=== PATIENT | male | born 1955 | race American Indian/Alaskan Native ===

== ENCOUNTER 2017-12-14 18:43 | Emergency (ER) | payer MEDICAID ==
[2017-12-14 18:44] VITALS: BMI 29.0
[2017-12-14] MEDS ORDERED: Alum-Mag Hydrox-Simethicone Susp (30 mL) PO STA (20:28)
[2017-12-14] MEDS ORDERED: Alum-Mag Hydrox-Simethicone Susp (30 mL) ONE (20:35)
--- NOTE | 2017-12-14 20:35 | C.PDOC ---
History Of Present Illness 62yo male, history of GERD (worse in the morning), presents to the ED for evaluation of left chest discomfort, described as waxing and waning for the past 3 days. Patient states the pain is non-exertional and he has not had any changes in his exercise tolerance. He also denies any known cardiac history. Patient denies any fever, chills, shortness of breath. No other complaints. Time Seen by Provider: 12/14/17 20:20 Chief Complaint (Nursing): Chest Pain History Per: Patient History/Exam Limitations: no limitations Onset/Duration Of Symptoms: Days (3) Current Symptoms Are (Timing): Still Present Quality: "Pain" Past Medical History Reviewed: Historical Data, Nursing Documentation, Vital Signs Vital Signs: Last Vital Signs Temp Pulse 66 12/14/17 21:06 Resp 12 12/14/17 21:06 BP 135/94 H 12/14/17 21:06 Pulse Ox 99 12/14/17 21:17 - Medical History PMH: GERD, HTN Surgical History: No Surg Hx Family History: States: No Known Family Hx - Social History Hx Tobacco Use: Yes Hx Alcohol Use: No Hx Substance Use: No - Immunization History Hx Tetanus Toxoid Vaccination: Yes Hx Influenza Vaccination: Yes Hx Pneumococcal Vaccination: Yes Review Of Systems Except As Marked, All Systems Reviewed And Found Negative. Constitutional: Negative for: Fever, Chills Cardiovascular: Positive for: Chest Pain Respiratory: Negative for: Shortness of Breath Physical Exam - Physical Exam Appears: No Acute Distress Skin: Normal Color, Warm, Dry Head: Atraumatic, Normacephalic Eye(s): bilateral: Other (pinpoint ) Oral Mucosa: Other (no alcohol on breath noted) Neck: Normal ROM, Supple Chest: Symmetrical, No Tenderness Cardiovascular: Rhythm Regular Respiratory: Normal Breath Sounds, No Wheezing Gastrointestinal/Abdominal: Normal Exam, Soft, No Tenderness Back: Normal Inspection Extremity: Normal ROM Neurological/Psych: Other (stuperous, repetitive) ED Course And Treatment - Laboratory Results Result Diagrams: 12/14/17 20:33 12/14/17 20:33 Lab Interpretation: Abnormal (tox + opiates/methadone, etoh neg.) ECG: Interpreted By Me ECG Rhythm: Sinus Rhythm ECG Interpretation: Normal Rate From EC O2 Sat by Pulse Oximetry: 99 Pulse Ox Interpretation: Normal - Radiology CXR: Interpreted by Me CXR Interpretation: Yes: No Acute Disease Progress Note: maalox, protonix Reevaluation Time: 21:16 Reassessment Condition: Improved Medical Decision Making Medical Decision Making: Impression: Chest pain (?) Plan: -- Patient accompanied by of 30+ years who states patient has not used any narcotics -- Labs -- CXR -- EKG -- Protonix 40 mg IVP -- Maalox 30 ml PO s/s c/w GERD, normal cardiac w/u and no hiatal hernia nor elev d-dimer initially denied narcotics use, tox + opiates/methadone which supports pt's pinpoint pupils and apparently narcotic use behavior. Declines detox at this time. at discharge pt claims he is in a Methadone program in [facility] [address] when asked if he has his urine toxicology done and it is positive for narcotics what happens? "They give me more methadone" Will consider discussion findings w pt's Methadone program. pt was homeless and recently took him back in but he claims he does not have sexual relations with her. pt specifically asked to NOT discuss his medical issues in front of his , though she was present at initial eval As he "claims" to not have sexual relations with her it seems we are NOT obligated to tell her. pt claims to be HIV negative He takes anti-HIV meds approx 1x/week when he has sex with an HIV+ woman. His is unaware of his extramarital sex with HIV+ woman. Denies receptive homosexual anal sex no stigmata of AIDS Instructed to have HIV testing performed as opt. Disposition Doctor Will See Patient In The: Office Counseled Patient/Family Regarding: Studies Performed, Diagnosis - Disposition Referrals: Alcoholics Anonymous [Outside] [facility] [Outside] [facility] [Outside] [facility] [Outside] [facility] [Outside] Disposition: HOME/ ROUTINE Disposition Time: 21:17 Condition: GOOD Additional Instructions: GERD: take pepcid 20 mg 9AM and 9PM for suspected GERD/Gastritis Maalox 30 cc's (one tablespoon) 4-5x/day as needed for symptomatic chest/reflux discomforts follow-up in our outpatient [facility] to consider referral for Gastroenterology as needed. Opiate abuse Seek outpatient counseling for your narcotics and methadone abuse Seek outpatient resources as listed below. Keep Narcan in your pocket and give one to your friends/family to administer to you in case of overdose- it reverses the respiratory suppression of opiate overdose and can save your life. HIV: continue your outpatient meds as normal safe sex practices have your viral load and CD4 count checked per routine. Prescriptions: Naloxone HCl [Narcan] 4 mg NS ONCE PRN #1 spray PRN Reason: narcotics use Instructions: Acid Reflux (Gastroesophageal Reflux Disease), Adult (DC) Forms: [facility] (Sudanese) - Clinical Impression Clinical Impression: Chest discomfort, Narcotic abuse, HIV exposure - Scribe Statement The provider has reviewed the documentation as recorded by the Scribe (Myla Pérez) Provider Attestation: All medical record entries made by the Scribe were at my direction and personally dictated by me. I have reviewed the chart and agree that the record accurately reflects my personal performance of the history, physical exam, medical decision making, and the department course for this patient. I have also personally directed, reviewed, and agree with the discharge instructions and disposition.
[2017-12-14 20:37] LABS: BASO # 0.1 K/uL (0.0-0.2); BASO % 0.9 % (0.0-2.0); EOS # 0.2 K/uL (0.0-0.7); EOS % 2.8 % (0.0-4.0); HEMOGLOBIN 12.3 g/dL (12.0-18.0); LYMPH # 2.5 K/uL (1.0-4.3); MEAN CELL VOLUME 85.6 fL (80.0-94.0); MEAN CORPUSCULAR HEMOGLOBIN 29.3 pg (27.0-31.0); MEAN CORPUSCULAR HGB CONC 34.2 g/dL (33.0-37.0); MEAN PLATELET VOLUME 7.1 fL (7.2-11.7); MONO # 0.6 K/uL (0.0-0.8); NEUT # 2.4 K/uL (1.8-7.0); NEUT % 41.3 % (50.0-75.0); RBC 4.21 Mil/uL (4.40-5.90); RED CELL DISTRIBUTION WIDTH 13.3 % (11.5-14.5); WHITE BLOOD COUNT 5.8 K/uL (4.8-10.8)
[2017-12-14 20:51] LABS: SQUAMOUS EPITHIAL < 1 /hpf (0-5); URINE BACTERIA RARE (<OCC); URINE BILIRUBIN NEGATIVE (NEGATIVE); URINE BLOOD NEGATIVE (NEGATIVE); URINE CLARITY Clear (Clear); URINE COLOR Yellow (YELLOW); URINE GLUCOSE (UA) NORMAL (Normal); URINE HYALINE CAST 0-2 /lpf (0-2); URINE LEUKOCYTE ESTERASE NEG Leu/uL (Negative); URINE PROTEIN NEGATIVE (NEGATIVE); URINE UROBILINOGEN NORMAL mg/dL (0.2-1.0)
[2017-12-14 20:52] LABS: ALB/GLOB RATIO 1.2 (1.0-2.1); ALBUMIN 3.5 g/dL (3.5-5.0); ALT/SGPT 20 U/L (21-72); AST/SGOT 25 U/L (17-59); BLOOD UREA NITROGEN 17 mg/dL (9-20); CALCIUM 8.9 mg/dl (8.6-10.4); GFR AFRICAN-AMERICAN > 60; GFR NON-AFRICAN AMERICAN > 60
[2017-12-14 20:57] LABS: PARTIAL THROMBOPLASTIN TIME 31 SECONDS (21-34); PROTHROMBIN TIME 10.9 SECONDS (9.7-12.2)
[2017-12-14 20:58] LABS: D DIMER < 200.0 ng/mlDDU (0-243)
[2017-12-14 21:01] LABS: BARBITURATES, UR NEGATIVE (NEGATIVE); BENZODIAZEPINES, UR NEGATIVE (NEGATIVE); PHENCYCLIDINE, UR NEGATIVE (NEGATIVE)
[2017-12-14 21:03] LABS: B-TYPE NATRIURETIC PEPTIDE 28.8 pg/mL (0-900)
[2017-12-14 21:06] VITALS: BP 135/94; PULSE 66; RESP 12
[2017-12-14 21:06] LABS: OPIATES, UR POSITIVE (NEGATIVE)
[2017-12-14 21:17] VITALS: O2SAT 99
--- NOTE | 2017-12-15 08:34 | RAD ---
HISTORY: SOB COMPARISON: No prior. TECHNIQUE: Chest PA and lateral FINDINGS: LUNGS: No active pulmonary disease. PLEURA: No significant pleural effusion identified. No pneumothorax apparent. CARDIOVASCULAR: Normal. OSSEOUS STRUCTURES: No significant abnormalities. VISUALIZED UPPER ABDOMEN: Normal. OTHER FINDINGS: None. IMPRESSION: No active disease.
--- NOTE | 2017-12-17 08:31 | CARD ---
APPROVED REPORT EKG Measurement Heart [id number] <Conclusion> Normal sinus rhythm Septal infarct, age undetermined Abnormal ECG
== END 2017-12-14 21:45 | disposition home or self-care (01) ==
LOC: C.ER 18:43
DX: R07.89 Other chest pain (principal); F11.10 Opioid abuse, uncomplicated; Z20.6 Contact with and (suspected) exposure to human immunodeficiency virus [HIV]
CPT/HCPCS: 71046; 80053; 80320; 80324; 80345; 80346; 80349; 80353; 80358; 80361; 81001; 83880; 83992; 84484; 85025; 85378; 85610; 85730; 96374; 99285; C9113